=== PATIENT | male | born 1995 | race Caucasian/White ===

== ENCOUNTER 2018-09-19 21:16 | Inpatient (IN) | payer BC ==
[2018-09-19] MEDS ORDERED: ONDANSETRON 4 MG/2 ML VIAL IVP STA (22:24)
[2018-09-19] MEDS ORDERED: FAMOTIDINE 20 MG/2 ML VIAL IV STA (22:25)
[2018-09-19] MEDS ORDERED: SODIUM CHLORIDE 0.9% 1,000 ML IV ONE (22:25)
[2018-09-19] MEDS ORDERED: hydrOXYzine HCL 25 MG TAB PO STA (22:25)
[2018-09-19 22:26] LABS: Basophils % (A) 1 %; Eosinophils # (A) 0.1 k/uL (0-0.7); Eosinophils % (A) 3 %; HCT 43.1 % (39.0-53.0); HGB 13.8 gm/dL (13.0-17.5); Lymphocytes # (A) 0.7 k/uL (1.0-4.8); Lymphocytes % (A) 21 %; MCH 31.8 pg (25.0-35.0); MCHC 32.1 g/dL (31.0-37.0); MCV 98.9 fL (80.0-100.0); Mean Platelet Volume 8.1; Monocytes # (A) 0.2 k/uL (0-1.0); Monocytes % (A) 6 %; Neutrophils # (A) 2.2 k/uL (1.3-7.7); Neutrophils % (A) 66 %; RBC 4.36 m/uL (4.30-5.90); RDW 13.1 % (11.5-15.5); WBC 3.3 k/uL (3.8-10.6)
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
[2018-09-19 22:29] LABS: ALT 258 U/L (21-72); AST 734 U/L (17-59); African American GFR (CKD) >90 (>60 ml/min/1.73 sqM); Albumin 4.7 g/dL (3.5-5.0); Alkaline Phosphatase 108 U/L (38-126); Amylase 67 U/L (30-110); Anion Gap 12 mmol/L; Blood Urea Nitrogen 13 mg/dL (9-20); Calcium 9.5 mg/dL (8.4-10.2); Carbon Dioxide 27 mmol/L (22-30); Chloride 100 mmol/L (98-107); Glucose 83 mg/dL (74-99); Lipase 107 U/L (23-300); Potassium 3.7 mmol/L (3.5-5.1); Sodium 139 mmol/L (137-145); Total Bilirubin 1.3 mg/dL (0.2-1.3); Total Protein 7.2 g/dL (6.3-8.2)
[2018-09-19 22:33] LABS: Alcohol 93 mg/dL
[2018-09-19 22:54] LABS: Platelet Count 90 k/uL (150-450)
[2018-09-19 22:55] LABS: Large Platelets Present
[2018-09-20] MEDS ORDERED: LORazepam 1 MG TAB PO STA (00:16)
[2018-09-20] MEDS ORDERED: chlordiazePOXIDE 25 MG CAP PO ONE (00:30)
[2018-09-20] MEDS ORDERED: ONDANSETRON 4 MG/2 ML VIAL IVP STA (00:40)
[2018-09-20] MEDS ORDERED: chlordiazePOXIDE 25 MG CAP PO STA (00:40)
[2018-09-20] MEDS ORDERED: THIAMINE 100 MG/ML 2 ML VIAL IM STA (02:01)
[2018-09-20] MEDS ORDERED: NALOXONE 0.4 MG/ML 1 ML VIAL IV PRN (02:02)
[2018-09-20] MEDS ORDERED: IBUPROFEN 600 MG TAB PO PRN (02:05)
--- NOTE | 2018-09-20 02:33 | US ---
EXAM: US Abdomen Complete CLINICAL HISTORY: Pain TECHNIQUE: Real-time ultrasound of the abdomen (complete) with image documentation. COMPARISON: No relevant prior studies available. FINDINGS: Liver: Enlarged liver at 20-21 cm with increased echogenicity. No intrahepatic bile duct dilation. Gallbladder: Distended gallbladder. No gallstones. No wall thickening or pericholecystic fluid. Common bile duct: Unremarkable. Pancreas: Portion of pancreas obscured by bowel gas. Kidneys: Unremarkable. No stones. No solid mass. No hydronephrosis. Spleen: Unremarkable. No splenomegaly. Aorta: Portion of the distal abdominal aorta obscured by bowel gas. Remainder unremarkable. Inferior vena cava: Unremarkable. IMPRESSION: Fatty, enlarged liver at 20-21 cm. No cholelithiasis. Remainder unremarkable.
[2018-09-20 02:52] LABS: Appearance,Urine Clear (Clear); Bilirubin,Urine 1+ (Negative); Blood,Urine Negative (Negative); Color,Urine Yellow; Glucose,Urine (UA) Negative (Negative); Hyaline Casts,Urine 2 /lpf (0-2); Ketones,Urine 1+ (Negative); Leukocyte Esterase,Urine Negative (Negative); Mucus,Urine Many /hpf; Nitrite,Urine Negative (Negative); PH, Urine 6.5 (5.0-8.0); Protein,Urine 2+ (Negative); RBC,Urine 2 /hpf (0-5); Specific Gravity,Urine 1.019 (1.001-1.035); Squamous Epithelial Cell,Urine <1 /hpf (0-4); WBC,Urine 2 /hpf (0-5)
[2018-09-20] MEDS ORDERED: ONDANSETRON 4 MG/2 ML VIAL IVP PRN (04:14)
[2018-09-20] MEDS: LORazepam 2 MG/ML INJ IV PRN ×4 (04:18→17:20)
[2018-09-20] MEDS: SODIUM CHLORIDE 0.9% 1,000 ML IV SCH ×2 (04:21→17:21)
[2018-09-20] MEDS ORDERED: diphenhydrAMINE 25 MG CAP PO PRN (06:00)
[2018-09-20] MEDS: FAMOTIDINE 20 MG TAB PO SCH ×2 (08:21→20:59)
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
[2018-09-20] MEDS: THIAMINE 100 MG TAB PO SCH ×2 (17:21→17:22)
[2018-09-20] MEDS: traZODone HCL 50 MG TAB PO SCH (20:59)
[2018-09-21] MEDS: LORazepam 2 MG/ML INJ IV PRN ×16 (01:19→16:09)
[2018-09-21] MEDS: SODIUM CHLORIDE 0.9% 1,000 ML IV SCH (05:19)
[2018-09-21] MEDS: THIAMINE 100 MG TAB PO SCH ×2 (07:35→21:40)
[2018-09-21] MEDS: FAMOTIDINE 20 MG TAB PO SCH ×2 (07:35→21:40)
[2018-09-21] MEDS: NICOTINE 21MG/24HR PATCH TRANSDERM SCH (07:38)
[2018-09-21] MEDS: chlordiazePOXIDE 25 MG CAP PO SCH ×3 (09:28→22:31)
[2018-09-21 09:34] LABS: Basophils % (A) 1 %; Eosinophils # (A) 0.1 k/uL (0-0.7); Eosinophils % (A) 4 %; HGB 14.9 gm/dL (13.0-17.5); Lymphocytes # (A) 0.7 k/uL (1.0-4.8); Lymphocytes % (A) 18 %; MCH 32.1 pg (25.0-35.0); MCV 97.3 fL (80.0-100.0); Mean Platelet Volume 7.9; Monocytes # (A) 0.3 k/uL (0-1.0); Monocytes % (A) 8 %; Neutrophils # (A) 2.4 k/uL (1.3-7.7); Neutrophils % (A) 67 %; RBC 4.63 m/uL (4.30-5.90); RDW 12.9 % (11.5-15.5); WBC 3.6 k/uL (3.8-10.6)
[2018-09-21 09:41] LABS: Platelet Count 94 k/uL (150-450)
[2018-09-21 09:55] LABS: ALT 193 U/L (21-72); AST 381 U/L (17-59); African American GFR (CKD) >90 (>60 ml/min/1.73 sqM); Albumin 4.9 g/dL (3.5-5.0); Alkaline Phosphatase 96 U/L (38-126); Anion Gap 19 mmol/L; Bilirubin, Delta 0.4 mg/dL (0.0-0.2); Bilirubin,Unconjugated 0.8 mg/dL (0.0-1.1); Blood Urea Nitrogen 8 mg/dL (9-20); Calcium 9.8 mg/dL (8.4-10.2); Carbon Dioxide 20 mmol/L (22-30); Chloride 98 mmol/L (98-107); Glucose 73 mg/dL (74-99); Potassium 3.7 mmol/L (3.5-5.1); Sodium 137 mmol/L (137-145); Total Bilirubin 1.2 mg/dL (0.2-1.3); Total Protein 7.5 g/dL (6.3-8.2)
[2018-09-21 13:04] LABS: Glucose,Whole Blood 90 mg/dL (75-99)
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
[2018-09-21] MEDS ORDERED: LORazepam 2 MG/ML INJ IV PRN (15:51)
--- NOTE | 2018-09-21 15:53 | P.PN ---
Subjective Progress Note Date: 09/21/18 Principal diagnosis: EtOH intoxication/withdrawal Chronic alcohol abuse 09/21/2018 Patient is seen and evaluated in room at bedside; patient has his family and sitter at bedside; has been very agitated and delusional; trying to climb out of bed and pulling and diabetes Vital signs are significant for heart rate of 112, respiration 21 and blood pressure of 143/112 Labs review show a white blood count of 3.6 and a platelet count of 94; sodium 137, potassium 3.7 and CO2 levels of 20 with a 9 gap of 19; slight improvement with AST/ALT from [id number]/258-381/193 this morning Patient has been evaluated by psych service and inpatient treatment is not recommended Patient was started on CIWA protocol and later Librium plus added at 25 mg 4 times a day; patient remained extremely agitated and hallucinations; discussed with casting machine adjuster service and is being transferred to ICU for possible sedation; continue with thiamine 100 mg twice a day Objective - Vital Signs Vital signs: Vital Signs Temp 98.2 F 09/21/18 05:00 Pulse 70 09/21/18 05:00 Resp 18 09/21/18 05:00 BP 131/86 09/21/18 05:00 Pulse Ox 100 09/21/18 05:00 Intake & Output 09/20/18 09/21/18 09/21/18 18:59 06:59 18:59 Intake Total 540 750 Balance 540 750 Intake: Oral 540 750 Other: # Voids 2 2 # Bowel Movements 0 - Exam - Constitutional General appearance: Present: average body habitus, cooperative, no acute distress - EENT Eyes: Present: anicteric sclerae, EOMI, PERRLA, normal appearance ENT: Present: hearing grossly normal, normal oropharynx Ears: bilateral: normal - Neck Neck: Present: normal ROM. Absent: lymphadenopathy, rigidity, thyromegaly Carotids: negative: bruit present Thyroid: bilateral: normal size, negative: enlarged, nodule - Respiratory Respiratory: bilateral: CTA, negative: rales, rhonchi, wheezing - Cardiovascular Rhythm: regular Heart sounds: normal: S1, S2 Abnormal Heart Sounds: Absent: systolic murmur, diastolic murmur - Gastrointestinal General gastrointestinal: Present: normal bowel sounds, soft. Absent: distended, organomegaly, tenderness - Genitourinary Genitourinary Comment(s): deferred - Integumentary Integumentary: Present: normal turgor. Absent: jaundiced, rash, ulcer - Neurologic Neurologic: Present: CNII-XII intact. Absent: focal deficits - Musculoskeletal Musculoskeletal: Present: gait normal, strength equal bilaterally - Psychiatric Psychiatric: Present: A&O x's 3, appropriate affect, intact judgment & insight - Labs CBC & Chem 7: 09/21/18 08:03 09/21/18 08:03 Labs: Abnormal Lab Results - Last 24 Hours (Table) 09/21/18 09/21/18 Range/Units 08:03 08:03 WBC 3.6 L (3.8-10.6) k/uL Plt Count 94 L (150-450) k/uL Lymphocytes # 0.7 L (1.0-4.8) k/uL Carbon Dioxide 20 L (22-30) mmol/L BUN 8 L (9-20) mg/dL Creatinine 0.61 L (0.66-1.25) mg/dL Glucose 73 L (74-99) mg/dL Delta Bilirubin 0.4 H (0.0-0.2) mg/dL AST 381 H (17-59) U/L ALT 193 H (21-72) U/L Assessment and Plan Assessment: 1. EtOH intoxication/withdrawal - Patient is admitted to general medical floor for IV fluid hydration with norm al saline at rate of 75 mL an hour; we will continue with thiamine and folic acid - Patient has [facility] protocol in place for alcohol withdrawal - Consult adoption social worker for discharge planning 2. Intractable nausea and vomiting; Zofran 4 mg every 6 hours when necessary 3. Elevated liver enzymes possibly secondary to alcohol abuse; hepatic ultrasound shows fatty enlarged liver at 2021 centimeter - We will continue to monitor liver enzymes closely; further recommendations to follow 4. Neutropenia/thrombocytopenia; possibly alcoholic liver disease; counseling done on need for cessation of alcohol; monitor CBC closely 5. Sleep disorder; restart patient on home dose of trazodone 6. DVT prophylaxis; SCDs/early ambulation CODE STATUS; full code Time with Patient: Greater than 30
[2018-09-21] MEDS ORDERED: HALOPERIDOL LACTATE 5 MG/ML 1 ML VIAL ONE (15:57)
[2018-09-21] MEDS ORDERED: HALOPERIDOL LACTATE 5 MG/ML 1 ML VIAL IVP PRN ×2 (16:12→16:13)
[2018-09-21] MEDS: traZODone HCL 50 MG TAB PO SCH (21:52)
[2018-09-22] MEDS: chlordiazePOXIDE 25 MG CAP PO SCH ×5 (00:25→23:10)
[2018-09-22] MEDS: LORazepam 2 MG/ML INJ IV PRN (00:52)
[2018-09-22] MEDS: SODIUM CHLORIDE 0.9% 1,000 ML IV SCH ×3 (06:17→23:26)
[2018-09-22 06:58] LABS: ALT 153 U/L (21-72); AST 291 U/L (17-59); African American GFR (CKD) >90 (>60 ml/min/1.73 sqM); Albumin 4.4 g/dL (3.5-5.0); Alkaline Phosphatase 86 U/L (38-126); Anion Gap 15 mmol/L; Bilirubin, Delta 0.3 mg/dL (0.0-0.2); Bilirubin,Unconjugated 0.6 mg/dL (0.0-1.1); Blood Urea Nitrogen 9 mg/dL (9-20); Calcium 9.4 mg/dL (8.4-10.2); Carbon Dioxide 21 mmol/L (22-30); Chloride 103 mmol/L (98-107); Glucose 66 mg/dL (74-99); Potassium 3.9 mmol/L (3.5-5.1); Sodium 139 mmol/L (137-145); Total Bilirubin 0.9 mg/dL (0.2-1.3); Total Protein 6.8 g/dL (6.3-8.2)
[2018-09-22 07:02] LABS: Basophils % (A) 1 %; Eosinophils # (A) 0.1 k/uL (0-0.7); Eosinophils % (A) 4 %; HGB 14.6 gm/dL (13.0-17.5); Lymphocytes # (A) 0.6 k/uL (1.0-4.8); Lymphocytes % (A) 20 %; MCH 32.6 pg (25.0-35.0); MCHC 32.4 g/dL (31.0-37.0); MCV 100.6 fL (80.0-100.0); Macrocytosis Slight; Mean Platelet Volume 8.7; Monocytes # (A) 0.2 k/uL (0-1.0); Monocytes % (A) 8 %; Neutrophils # (A) 1.8 k/uL (1.3-7.7); Neutrophils % (A) 62 %; RBC 4.47 m/uL (4.30-5.90); RDW 14.5 % (11.5-15.5); WBC 2.9 k/uL (3.8-10.6)
[2018-09-22 07:19] LABS: Anisocytosis (M) Present; Platelet Count 94 k/uL (150-450)
[2018-09-22] MEDS: NICOTINE 21MG/24HR PATCH TRANSDERM SCH (09:12)
[2018-09-22] MEDS: THIAMINE 100 MG TAB PO SCH ×3 (09:12→20:54)
[2018-09-22] MEDS: FAMOTIDINE 20 MG TAB PO SCH ×3 (09:12→20:55)
[2018-09-22 09:18] LABS: Glucose,Whole Blood 74 mg/dL (75-99)
[2018-09-22 11:05] LABS: Urine Alcohol Negative (Negative); Urine Barbiturate Negative (Negative); Urine Cocaine Negative (Negative); Urine Methadone Negative (Negative); Urine Opiates Negative (Negative); Urine Phencyclidine Negative (Negative)
[2018-09-22] MEDS: MAGNESIUM SULFATE-D5W PMX 1 GM in DEXTROSE/WATER 1 100ML.BAG IVPB SCH ×2 (14:36→19:29)
--- NOTE | 2018-09-22 16:52 | P.PN ---
Subjective Progress Note Date: 09/22/18 This is a 22-year-old white male patient with history of chronic alcoholism, he nenita alcohol abuse, patient drinks a fifth of vodka on a daily basis since the age of 13, smoker, marijuana use, who presented to the hospital from [facility] where he was for detox. Patient came in with complaints of vomiting, abdominal pain, hence was transferred to the emergency department for evaluation. He checked into [facility] on September 19, and he stated he had not been given anything for EtOH withdrawal. Has prior history of acute alcohol withdrawal syndrome, with seizures, had prior rehab at [facility] back in December, however as soon as he left the rehab he was started drinking again. Patient was started on combination of Ativan and Librium. Admission lab work revealed elevated liver enzymes ultrasound of the abdomen was done showing fatty liver at 20-21 cm, no cholelithiasis. Admission lab work showed white blood cell count of 3.3, hemoglobin of 13.8, platelet count was 90, electrolytes were within normal limits on admission, BUN was 13 creatinine was 0.63. AST was 734, ALT was 258, amylase was 67, and lipase was 107, urinalysis showed 2+ protein, 1+ ketones, 1+ bilirubin, no evidence of infection, serum alcohol on admission was 93. Today we received a call from the attending physician with concerns about patient's tachycardia, hypertension, tremors, sweating, and patient will be transferred to the intensive care unit for monitoring for acute alcohol withdrawal. During our evaluation patient is sitting up in bed, he is dressed in his street clothes, he is pleasant, but he is visibly tremulous, and his palms are moist. His speech is fast, but appropriate, no signs of delirium at this time. His girlfriend and his father are at the bedside, patient was able to provide most of the history. He is pleasant and cooperative. Denies any abdominal pain, no nausea or vomiting. No seizure activity. Room air pulse ox is 100%, blood pressure is 148/105, temperature is 98.2, patient is tachycardic with a heart rate of 101 BPM. No complaints of chest pain or difficulty breathing. Today's evaluation this patient is is being seen in follow-up on 09/22/2018. The patient is a bit sleepy and still confused. No significant agitation. Based on my evaluation, the patient received a total of 26 mg of Ativan yesterday, 8 mg of Haldol and she was given another 4 mg of Ativan overnight. He is arousable. He is moving all 4 extremities without any limitation. He is not complaining of any headache. No cough. No sputum production. No chest pain. No palpitation pedal cardiac arrhythmias. The patient's white cell count is at 2.9. Platelet count is at 94,000. Rest of the blood work and electrodes are all within normal limits. Objective - Vital Signs Vital signs: Vital Signs Temp 97.8 F 09/22/18 09:00 Pulse 63 09/22/18 14:00 Resp 16 09/22/18 14:00 BP 124/95 09/22/18 14:00 Pulse Ox 96 09/22/18 14:00 Intake & Output 09/21/18 09/22/18 09/22/18 18:59 06:59 18:59 Intake Total 375 975 600 Output Total 900 300 Balance -525 675 600 Weight 67.3 kg Intake: Intake, IV Titration 375 975 600 Amount Sodium Chloride 0.9% 1, 375 975 600 000 ml @ 75 mls/hr IV . [id number] [facility] Rx#:[id number] Output: Urine 900 300 Other: Voiding Method Bedpan Bedpan # Voids 2 - Exam GENERAL EXAM: Alert, pleasant, 22-year-old thin white male, patient remains a bit sleepy and lethargic as the patient has a significant amount of sedative med ication yesterday and overnight. HEAD: Normocephalic/atraumatic. EYES: Normal reaction of pupils, equal size. Conjunctiva pink, sclera white. NOSE: Clear with pink turbinates. THROAT: No erythema or exudates. NECK: No masses, no JVD, no thyroid enlargement, no adenopathy. CHEST: No chest wall deformity. Symmetrical expansion. LUNGS: Equal air entry with no crackles, wheeze, rhonchi or dullness. CVS: Regular rate and rhythm, normal S1 and S2, no gallops, no murmurs, no rubs. he is tachycardic with a rate in the low 100s ABDOMEN: Soft, nontender. No hepatosplenomegaly, normal bowel sounds, no guarding or rigidity. EXTREMITIES: No clubbing, no edema, no cyanosis, 2+ pulses and upper and lower extremities. MUSCULOSKELETAL: Muscle strength and tone normal. SPINE: No scoliosis or deformity SKIN: No rashes CENTRAL NERVOUS SYSTEM: Alert and oriented 1-2. No focal deficits, tone is normal in all 4 extremities. PSYCHIATRIC: Alert and oriented -3. Appropriate affect. Intact judgment and insight. - Labs CBC & Chem 7: 09/22/18 05:09 09/22/18 05:09 Labs: Abnormal Lab Results - Last 24 Hours (Table) 09/21/18 09/22/18 09/22/18 Range/Units 12:30 05:09 05:09 WBC 2.9 L (3.8-10.6) k/uL MCV 100.6 H (80.0-100.0) fL Plt Count 94 L (150-450) k/uL Lymphocytes # 0.6 L (1.0-4.8) k/uL Carbon Dioxide 21 L (22-30) mmol/L Creatinine 0.64 L (0.66-1.25) mg/dL Glucose 66 L (74-99) mg/dL POC Glucose (mg/dL) (75-99) mg/dL Delta Bilirubin 0.3 H (0.0-0.2) mg/dL AST 291 H (17-59) U/L ALT 153 H (21-72) U/L U Benzodiazepines Scrn Positive H (Negative) ng/mL U Cannabinoids Screen Positive H (Negative) ng/mL 09/22/18 Range/Units 09:16 WBC (3.8-10.6) k/uL MCV (80.0-100.0) fL Plt Count (150-450) k/uL Lymphocytes # (1.0-4.8) k/uL Carbon Dioxide (22-30) mmol/L Creatinine (0.66-1.25) mg/dL Glucose (74-99) mg/dL POC Glucose (mg/dL) 74 L (75-99) mg/dL Delta Bilirubin (0.0-0.2) mg/dL AST (17-59) U/L ALT (21-72) U/L U Benzodiazepines Scrn (Negative) ng/mL U Cannabinoids Screen (Negative) ng/mL Assessment and Plan Plan: #1. Acute alcohol withdrawal/delirium tremens in a patient was chronic history of alcoholism. The patient's condition is more stable and the patient was covered with a combination of Ativan and Haldol. Hemodynamically stable at this point in time. #2. Elevated liver enzymes related to chronic alcoholism, abdominal ultrasound revealed fatty liver #3. Chronic alcoholism, with previous history of rehab placement at [facility], patient immediately relapsed after discharge from rehab. Drinks a fifth of vodka a day, last drink was before entering [facility] rehab on 09/19/2018 #4. Acute alcohol withdrawal, without delirium #5. Chronic smoker #6. Marijuana use #7. Leukopenia and thrombocytopenia related to chronic alcohol abuse Plan Monitor this patient's neurologic function. He is still in the interim tremors. Is receiving a combination of Ativan and Haldol per protocol. He was also started on Librium 25 mg 4 times a day. Nicotine patch. Trazodone 100 mg bedtime. Thiamine and folate. IV hydration. Advance diet. We'll continue to follow.
--- NOTE | 2018-09-22 17:28 | P.PN ---
Subjective patient admitted for alcohol withdrawalshe was transferred to ICU as he was requiring a lot of Ativan. He received had 2 doses of Ativan and about 8 mg of Haldol. On 09/22/2018 Patient is sleepy but arousable He was not complaining of any chest pain racing heart, no cough no shortness breath, no abdominal pain, nausea and vomiting, or diarrhea constipation, no tingling numbness on his extremities. Objective - Vital Signs Vital signs: Vital Signs Temp 97.8 F 09/22/18 09:00 Pulse 63 09/22/18 14:00 Resp 16 09/22/18 14:00 BP 124/95 09/22/18 14:00 Pulse Ox 96 09/22/18 14:00 Intake & Output 09/21/18 09/22/18 09/22/18 18:59 06:59 18:59 Intake Total 375 975 600 Output Total 900 300 Balance -525 675 600 Weight 67.3 kg Intake: Intake, IV Titration 375 975 600 Amount Sodium Chloride 0.9% 1, 375 975 600 000 ml @ 75 mls/hr IV . [id number] [facility] Rx#:[id number] Output: Urine 900 300 Other: Voiding Method Bedpan Bedpan # Voids 2 - Exam On exam, alert and oriented x3. HEENT: Conjunctivae normal. eyes normal. NECK: No JVD. No thyroid enlargement. No LNs CARDIOVASCULAR: S1-S2 positive RESPIRATION: Breath sounds diminished in the bases. No rhonchi or crackles. No bronchial breathing. ABDOMEN: Soft, nontender . No guarding. no masses palpable. No ascites, No hepatosplenomegaly.Bowel sounds heard. LEGS: No edema. no swelling NERVOUS SYSTEM: Cranial N 2-12 grossly normal. Moves all 4 limbs. No focal deficits. No sensory deficit. No signs of cerebellar dysfucntion. Skin: no ulcer no rash - Labs CBC & Chem 7: 09/22/18 05:09 09/22/18 05:09 Labs: Abnormal Lab Results - Last 24 Hours (Table) 09/21/18 09/22/18 09/22/18 Range/Units 12:30 05:09 05:09 WBC 2.9 L (3.8-10.6) k/uL MCV 100.6 H (80.0-100.0) fL Plt Count 94 L (150-450) k/uL Lymphocytes # 0.6 L (1.0-4.8) k/uL Carbon Dioxide 21 L (22-30) mmol/L Creatinine 0.64 L (0.66-1.25) mg/dL Glucose 66 L (74-99) mg/dL POC Glucose (mg/dL) (75-99) mg/dL Delta Bilirubin 0.3 H (0.0-0.2) mg/dL AST 291 H (17-59) U/L ALT 153 H (21-72) U/L U Benzodiazepines Scrn Positive H (Negative) ng/mL U Cannabinoids Screen Positive H (Negative) ng/mL 09/22/18 Range/Units 09:16 WBC (3.8-10.6) k/uL MCV (80.0-100.0) fL Plt Count (150-450) k/uL Lymphocytes # (1.0-4.8) k/uL Carbon Dioxide (22-30) mmol/L Creatinine (0.66-1.25) mg/dL Glucose (74-99) mg/dL POC Glucose (mg/dL) 74 L (75-99) mg/dL Delta Bilirubin (0.0-0.2) mg/dL AST (17-59) U/L ALT (21-72) U/L U Benzodiazepines Scrn (Negative) ng/mL U Cannabinoids Screen (Negative) ng/mL Assessment and Plan Assessment: - WITHDRAWAL - History of alcoholism - Transaminitis related to alcoholism - history of marijuana use - leukopenia - thrombocytopenia Plan - Continue to monitor in ICU - Continue serial protocol - Continuecurrent medical care - Continue IV fluids - we'll follow up with the patient Time with Patient: Greater than 30
[2018-09-22] MEDS: traZODone HCL 50 MG TAB PO SCH (21:01)
[2018-09-23] MEDS: LORazepam 2 MG/ML INJ IV PRN ×3 (00:47→23:01)
[2018-09-23 05:52] LABS: HCT 43.9 % (39.0-53.0); HGB 14.2 gm/dL (13.0-17.5); MCHC 32.3 g/dL (31.0-37.0); Platelet Count 133 k/uL (150-450); RBC 4.43 m/uL (4.30-5.90); RDW 14.6 % (11.5-15.5); WBC 3.4 k/uL (3.8-10.6)
[2018-09-23 06:01] LABS: ALT 140 U/L (21-72); AST 247 U/L (17-59); African American GFR (CKD) >90 (>60 ml/min/1.73 sqM); Albumin 3.9 g/dL (3.5-5.0); Alkaline Phosphatase 120 U/L (38-126); Anion Gap 11 mmol/L; Bilirubin, Delta 0.3 mg/dL (0.0-0.2); Bilirubin,Unconjugated 0.4 mg/dL (0.0-1.1); Blood Urea Nitrogen 7 mg/dL (9-20); Calcium 9.2 mg/dL (8.4-10.2); Carbon Dioxide 23 mmol/L (22-30); Chloride 105 mmol/L (98-107); Glucose 98 mg/dL (74-99); Magnesium 1.7 mg/dL (1.6-2.3); Potassium 3.7 mmol/L (3.5-5.1); Sodium 139 mmol/L (137-145); Total Bilirubin 0.7 mg/dL (0.2-1.3); Total Protein 6.4 g/dL (6.3-8.2)
[2018-09-23] MEDS: NICOTINE 21MG/24HR PATCH TRANSDERM SCH ×2 (08:16→08:28)
[2018-09-23] MEDS: THIAMINE 100 MG TAB PO SCH ×2 (08:16→18:16)
[2018-09-23] MEDS: FAMOTIDINE 20 MG TAB PO SCH ×2 (08:16→21:12)
[2018-09-23] MEDS: chlordiazePOXIDE 25 MG CAP PO SCH ×4 (08:16→21:12)
[2018-09-23 08:32] LABS: Lymphocytes # (M) 0.75 k/uL (1.0-4.8); Monocytes # (M) 0.44 k/uL (0-1.0); Neutrophils # (M) 2.11 k/uL (1.3-7.7); Neutrophils % (M) 62 %; Nucleated Red Blood Cells 0 /100 WBC (0-0); Total Cells Counted 100
[2018-09-23] MEDS: SODIUM CHLORIDE 0.9% 1,000 ML IV SCH ×2 (10:25→18:40)
--- NOTE | 2018-09-23 15:29 | P.PN ---
Subjective patient admitted for alcohol withdrawalshe was transferred to ICU as he was requiring a lot of Ativan. He received had 2 doses of Ativan and about 8 mg of Haldol. On 09/22/2018 Patient is sleepy but arousable He was not complaining of any chest pain racing heart, no cough no shortness breath, no abdominal pain, nausea and vomiting, or diarrhea constipation, no tingling numbness on his extremities. 09/23/2018 Doing much better today. Patient will probably be transferred out of the ICU today No chest pain racing heart, no cough no shortness of breath, no tingling numbness on his extremities Objective - Vital Signs Vital signs: Vital Signs Temp 98.0 F 09/23/18 14:46 Pulse 96 09/23/18 14:46 Resp 15 09/23/18 14:46 BP 142/102 09/23/18 14:46 Pulse Ox 100 09/23/18 14:46 Intake & Output 09/22/18 09/23/18 09/23/18 18:59 06:59 18:59 Intake Total 1000 75 475 Output Total 450 0 Balance 550 75 475 Intake: IV 75 75 Sodium Chloride 0.9% 1, 75 75 000 ml @ 75 mls/hr IV . [id number] JACQUE Rx#:[id number] Intake, IV Titration 900 Amount Sodium Chloride 0.9% 1, 900 000 ml @ 75 mls/hr IV . [id number] JACQUE Rx#:[id number] Oral 100 400 Output: Urine 450 0 Other: Voiding Method Bedpan Urinal # Voids 2 - Exam On exam, alert and oriented x3. HEENT: Conjunctivae normal. eyes normal. NECK: No JVD. No thyroid enlargement. No LNs CARDIOVASCULAR: S1-S2 positive RESPIRATION: Breath sounds diminished in the bases. No rhonchi or crackles. No bronchial breathing. ABDOMEN: Soft, nontender . No guarding. no masses palpable. No ascites, No hepatosplenomegaly.Bowel sounds heard. LEGS: No edema. no swelling NERVOUS SYSTEM: Cranial N 2-12 grossly normal. Moves all 4 limbs. No focal deficits. No sensory deficit. No signs of cerebellar dysfucntion. Skin: no ulcer no rash - Labs CBC & Chem 7: 09/23/18 04:46 09/23/18 04:46 Labs: Abnormal Lab Results - Last 24 Hours (Table) 09/23/18 09/23/18 Range/Units 04:46 04:46 WBC 3.4 L (3.8-10.6) k/uL Plt Count 133 L (150-450) k/uL Lymphocytes # (Manual) 0.75 L (1.0-4.8) k/uL BUN 7 L (9-20) mg/dL Delta Bilirubin 0.3 H (0.0-0.2) mg/dL AST 247 H (17-59) U/L ALT 140 H (21-72) U/L Assessment and Plan Assessment: - WITHDRAWAL - History of alcoholism - Transaminitis related to alcoholism - history of marijuana use - leukopenia - thrombocytopenia Plan 09/22/2018 - Continue to monitor in ICU - Continue serial protocol - Continuecurrent medical care - Continue IV fluids - we'll follow up with the patient 09/23/2018 - Patient will probably be transferred out of the ICU today -Patient will be monitored today and if he is doing better probably will be discharged tomorrow -Patient to go to [facility] for alcohol rehab
--- NOTE | 2018-09-23 17:19 | P.PN ---
Subjective Progress Note Date: 09/23/18 Principal diagnosis: Acute alcohol withdrawal This is a 22-year-old white male patient with history of chronic alcoholism, heavy alcohol abuse, patient drinks a fifth of vodka on a daily basis since the age of 13, smoker, marijuana use, who presented to the hospital from [facility] where he was for detox. Patient came in with complaints of vomiting, abdominal pain, hence was transferred to the emergency department for evaluation. He checked into [facility] on September 19, and he stated he had not been given anything for EtOH withdrawal. Has prior history of acute alcohol withdrawal syndrome, with seizures, had prior rehab at [facility] back in December, however as soon as he left the rehab he was started drinking again. Patient was started on combination of Ativan and Librium. Admission lab work revealed elevated liver enzymes ultrasound of the abdomen was done showing fatty liver at 20-21 cm, no cholelithiasis. Admission lab work showed white blood cell count of 3.3, hemoglobin of 13.8, platelet count was 90, electrolytes were within normal limits on admission, BUN was 13 creatinine was 0.63. AST was 734, ALT was 258, amylase was 67, and lipase was 107, urinalysis showed 2+ protein, 1+ ketones, 1+ bilirubin, no evidence of infection, serum alcohol on admission was 93. Today we received a call from the attending physician with concerns about patient's tachycardia, hypertension, tremors, sweating, and patient will be transferred to the intensive care unit for monitoring for acute alcohol withdrawal. During our evaluation patient is sitting up in bed, he is dressed in his street clothes, he is pleasant, but he is visibly tremulous, and his palms are moist. His speech is fast, but appropriate, no signs of delirium at this time. His girlfriend and his father are at the bedside, patient was able to provide most of the history. He is pleasant and cooperative. Denies any abdominal pain, no nausea or vomiting. No seizure activity. Room air pulse ox is 100%, blood pressure is 148/105, temperature is 98.2, patient is tachycardic with a heart rate of 101 BPM. No complaints of chest pain or difficulty breathing. Today's evaluation this patient is is being seen in follow-up on 09/22/2018. The patient is a bit sleepy and still confused. No significant agitation. Based on my evaluation, the patient received a total of 26 mg of Ativan yesterday, 8 mg of Haldol and she was given another 4 mg of Ativan overnight. He is arousable. He is moving all 4 extremities without any limitation. He is not complaining of any headache. No cough. No sputum production. No chest pain. No palpitation pedal cardiac arrhythmias. The patient's white cell count is at 2.9. Platelet count is at 94,000. Rest of the blood work and electrodes are all within normal limits. On 09/23/2018 patient seen in follow-up in the intensive care unit, he is sitting up in the recliner, in no acute distress, no confusion, no signs of delirium, patient is responding appropriately, no tremors, no diaphoresis, room air pulse ox is 100%, no tachycardia, sinus rhythm on the monitor with a controlled rate, afebrile, hemodynamically stable. Respirations are even and nonlabored. No acute events overnight. Doing much better, tolerating a regular diet. Patient is stable to transfer out of the intensive care unit today. Objective - Vital Signs Vital signs: Vital Signs Temp 98.0 F 09/23/18 14:46 Pulse 96 09/23/18 14:46 Resp 15 09/23/18 14:46 BP 142/102 09/23/18 14:46 Pulse Ox 100 09/23/18 14:46 Intake & Output 09/22/18 09/23/18 09/23/18 18:59 06:59 18:59 Intake Total 1000 75 475 Output Total 450 0 Balance 550 75 475 Intake: IV 75 75 Sodium Chloride 0.9% 1, 75 75 000 ml @ 75 mls/hr IV . [id number] JACQUE Rx#:[id number] Intake, IV Titration 900 Amount Sodium Chloride 0.9% 1, 900 000 ml @ 75 mls/hr IV . [id number] JACQUE Rx#:[id number] Oral 100 400 Output: Urine 450 0 Other: Voiding Method Bedpan Urinal # Voids 2 - Exam GENERAL EXAM: Alert, pleasant, 22-year-old white male, on room air, answering appropriately, comfortable in no apparent distress. HEAD: Normocephalic/atraumatic. EYES: Normal reaction of pupils, equal size. Conjunctiva pink, sclera white. NOSE: Clear with pink turbinates. THROAT: No erythema or exudates. NECK: No masses, no JVD, no thyroid enlargement, no adenopathy. CHEST: No chest wall deformity. Symmetrical expansion. LUNGS: Equal air entry with no crackles, wheeze, rhonchi or dullness. CVS: Regular rate and rhythm, normal S1 and S2, no gallops, no murmurs, no rubs ABDOMEN: Soft, nontender. No hepatosplenomegaly, normal bowel sounds, no guarding or rigidity. EXTREMITIES: No clubbing, no edema, no cyanosis, 2+ pulses and upper and lower extremities. MUSCULOSKELETAL: Muscle strength and tone normal. SPINE: No scoliosis or deformity SKIN: No rashes CENTRAL NERVOUS SYSTEM: Alert and oriented -3. No focal deficits, tone is normal in all 4 extremities. PSYCHIATRIC: Alert and oriented -3. Appropriate affect. Intact judgment and insight. - Labs CBC & Chem 7: 09/23/18 04:46 09/23/18 04:46 Labs: Abnormal Lab Results - Last 24 Hours (Table) 09/23/18 09/23/18 Range/Units 04:46 04:46 WBC 3.4 L (3.8-10.6) k/uL Plt Count 133 L (150-450) k/uL Lymphocytes # (Manual) 0.75 L (1.0-4.8) k/uL BUN 7 L (9-20) mg/dL Delta Bilirubin 0.3 H (0.0-0.2) mg/dL AST 247 H (17-59) U/L ALT 140 H (21-72) U/L Assessment and Plan Plan: Assessment: #1. Acute alcohol withdrawal/delirium tremens in a patient was chronic history of alcoholism. The patient's condition is more stable and the patient was cover ed with a combination of Ativan and Haldol. Hemodynamically stable at this point in time. #2. Elevated liver enzymes related to chronic alcoholism, abdominal ultrasound revealed fatty liver #3. Chronic alcoholism, with previous history of rehab placement at [facility], patient immediately relapsed after discharge from rehab. Drinks a fifth of vodka a day, last drink was before entering [facility] rehab on 09/19/2018 #4. Chronic smoker #5. Marijuana use #6. Leukopenia and thrombocytopenia related to chronic alcohol abuse, improving Plan: Continue monitoring CIWA scale, patient is awake and alert, no evidence of delirium, he is cooperative, no tremors, no complaints of headaches, no difficulty breathing, no tachycardia. Tolerating oral intake, today's labs have been reviewed, white blood cell count is trending up, platelet count is up to 133, electrolytes are within normal limits. Liver enzymes are trending down, no complaint of abdominal pain, no nausea or vomiting. Stble to be discharged out of the ICU to regular medical surgical floor I performed a history & physical examination of the patient and discussed their management with my nurse practitioner, Ashli Parry. I reviewed the nurse practitioner's note and agree with the documented findings and plan of care. Lung sounds are positive for clear breath sounds. The findings and the impre ssion was discussed with the patient. I attest to the documentation by the nurse practitioner. Time with Patient: Less than 30
[2018-09-23] MEDS: traZODone HCL 50 MG TAB PO SCH (22:09)
[2018-09-24] MEDS: LORazepam 2 MG/ML INJ IV PRN (00:35)
[2018-09-24 07:44] VITALS: BP 147/106; PULSE 86; RESP 20; TEMP 98.1
[2018-09-24] MEDS: chlordiazePOXIDE 25 MG CAP PO SCH (08:42)
[2018-09-24] MEDS: THIAMINE 100 MG TAB PO SCH (08:42)
[2018-09-24] MEDS: FAMOTIDINE 20 MG TAB PO SCH (08:42)
[2018-09-24] MEDS: NICOTINE 21MG/24HR PATCH TRANSDERM SCH (08:43)
--- NOTE | 2018-09-24 12:17 | P.DS ---
Providers Date of admission: 09/20/18 02:05 Expected date of discharge: 09/24/18 Attending physician: Inge Herndon Consults: 09/20/18 02:03 Consult Physician Routine Consulting Provider: Jennie Bobo Consult Reason/Comments: Alcohol dependence Do you want consulting provider notified?: Yes 09/21/18 12:14 Consult Physician Urgent Consulting Provider: Bryan Ewing Reason/Comments: ETOH withdrawl Do you want consulting provider notified?: Already Contacted Primary care physician: Stated None Hospital Course: Discharge diagnosis - WITHDRAWAL - History of alcoholism - Transaminitis related to alcoholism - history of marijuana use - leukopenia - thrombocytopenia Hospital course 22 yoM presenting from [facility] with the c/c of vomiting and abdominal pain. Patient states he just arrived there today and they have no given him anything for ETOH withdrawal. He states he was last sober in December, which was the last time he was in rehab. He states he drank half a 5th this morning, which is less than he normally drinks. He then developed nausea and vomiting. While vomiting he had a bloody nose. He denies history of DTs. Denies history of pancreatitis. Patient was awake alert and stable upon arrival to ED becoming more tremulous while in the emergency department; patient was given Librium 50 mg which did improve him clinically; workup in ED was positive for elevated liver enzymes Patient is admitted to the hospital for further treatment and evaluation Patient was going high on Cipro protocol and he was started on Ativan as per Cipro protocol. He had to be transferred to ICU as the patient was really agitated. Along the course of the ICU the patient started to improve. He was transferred back to the regular floor. On 09/24/2018 Patient was sleeping but woke up to me calling his name. He was alert oriented 3. He was not having any issues. No chest pain racing heart no cough no shortness breath, no abdominal pain, nausea and vomiting, or diarrhea constipation, no tingling numbness of any 70s, and additional rest. Patient feels motivated to go to [place] to go to rehab On exam, alert and oriented x3. HEENT: Conjunctivae normal. eyes normal. NECK: No JVD. No thyroid enlargement. No LNs CARDIOVASCULAR: S1-S2 positive RESPIRATION: Breath sounds diminished in the bases. No rhonchi or crackles. No bronchial breathing. ABDOMEN: Soft, nontender . No guarding. no masses palpable. No ascites, No hepatosplenomegaly.Bowel sounds heard. LEGS: No edema. no swelling NERVOUS SYSTEM: Cranial N 2-12 grossly normal. Moves all 4 limbs. No focal deficits. No sensory deficit. No signs of cerebellar dysfucntion. Skin: no ulcer no rash Patient will be discharged when transport to [place] is been arranged. Patient was counseled to stop drinking. He will need to have his CMP checked in 1 week for liver functions and follow with his primary care doctor. Patient Condition at Discharge: Stable Plan - Discharge Summary New Discharge Prescriptions: Continue traZODone HCL 50 - 150 mg PO HS Ibuprofen [Motrin] 600 mg PO Q6HR PRN PRN Reason: Fever And/ Or Pain Chlorpheniramine Maleate [Chlor-Trimeton] 4 mg PO Q4H PRN PRN Reason: Allergy Symptoms Acetaminophen [Tylenol] 625 mg PO Q4H PRN PRN Reason: Fever And/ Or Pain Thiamine [Vitamin B-1] 100 mg PO DAILY Multivitamins, Thera [Multivitamin (formulary)] 1 tab PO DAILY Discharge Medication List Acetaminophen [Tylenol] 625 mg PO Q4H PRN 09/19/18 [History] Chlorpheniramine Maleate [Chlor-Trimeton] 4 mg PO Q4H PRN 09/19/18 [History] Ibuprofen [Motrin] 600 mg PO Q6HR PRN 09/19/18 [History] Multivitamins, Thera [Multivitamin (formulary)] 1 tab PO DAILY 09/19/18 [History] Thiamine [Vitamin B-1] 100 mg PO DAILY 09/19/18 [History] traZODone HCL 50 - 150 mg PO HS 09/19/18 [History] Follow up Appointment(s)/Referral(s): None,Stated [Primary Care Provider] - 1-2 days Discharge Disposition: OTHER INSTITUTION NOT DEFINED
--- NOTE | 2018-09-24 14:26 | P.PN ---
Subjective Progress Note Date: 09/24/18 Principal diagnosis: Acute alcohol withdrawal This is a 22-year-old white male patient with history of chronic alcoholism, heavy alcohol abuse, patient drinks a fifth of vodka on a daily basis since the age of 13, smoker, marijuana use, who presented to the hospital from [facility] where he was for detox. Patient came in with complaints of vomiting, abdominal pain, hence was transferred to the emergency department for evaluation. He checked into [facility] on September 19, and he stated he had not been given anything for EtOH withdrawal. Has prior history of acute alcohol withdrawal syndrome, with seizures, had prior rehab at [facility] back in December, however as soon as he left the rehab he was started drinking again. Patient was started on combination of Ativan and Librium. Admission lab work revealed elevated liver enzymes ultrasound of the abdomen was done showing fatty liver at 20-21 cm, no cholelithiasis. Admission lab work showed white blood cell count of 3.3, hemoglobin of 13.8, platelet count was 90, electrolytes were within normal limits on admission, BUN was 13 creatinine was 0.63. AST was 734, ALT was 258, amylase was 67, and lipase was 107, urinalysis showed 2+ protein, 1+ ketones, 1+ bilirubin, no evidence of infection, serum alcohol on admission was 93. Today we received a call from the attending physician with concerns about patient's tachycardia, hypertension, tremors, sweating, and patient will be transferred to the intensive care unit for monitoring for acute alcohol withdrawal. During our evaluation patient is sitting up in bed, he is dressed in his street clothes, he is pleasant, but he is visibly tremulous, and his palms are moist. His speech is fast, but appropriate, no signs of delirium at this time. His girlfriend and his father are at the bedside, patient was able to provide most of the history. He is pleasant and cooperative. Denies any abdominal pain, no nausea or vomiting. No seizure activity. Room air pulse ox is 100%, blood pressure is 148/105, temperature is 98.2, patient is tachycardic with a heart rate of 101 BPM. No complaints of chest pain or difficulty breathing. Today's evaluation this patient is is being seen in follow-up on 09/22/2018. The patient is a bit sleepy and still confused. No significant agitation. Based on my evaluation, the patient received a total of 26 mg of Ativan yesterday, 8 mg of Haldol and she was given another 4 mg of Ativan overnight. He is arousable. He is moving all 4 extremities without any limitation. He is not complaining of any headache. No cough. No sputum production. No chest pain. No palpitation pedal cardiac arrhythmias. The patient's white cell count is at 2.9. Platelet count is at 94,000. Rest of the blood work and electrodes are all within normal limits. On 09/23/2018 patient seen in follow-up in the intensive care unit, he is sitting up in the recliner, in no acute distress, no confusion, no signs of delirium, patient is responding appropriately, no tremors, no diaphoresis, room air pulse ox is 100%, no tachycardia, sinus rhythm on the monitor with a controlled rate, afebrile, hemodynamically stable. Respirations are even and nonlabored. No acute events overnight. Doing much better, tolerating a regular diet. Patient is stable to transfer out of the intensive care unit today. On 09/24/2018 patient seen in follow-up on medical surgical floor. Doing well, vital signs are stable, no active delirium. No acute events overnight. No tremors. No complaints of headaches, room air pulse ox 98%, patient is being discharged to [facility] rehab today Objective - Vital Signs Vital signs: Vital Signs Temp 98.1 F 09/24/18 07:00 Pulse 86 09/24/18 07:00 Resp 20 09/24/18 09:05 BP 147/106 09/24/18 07:00 Pulse Ox 98 09/24/18 07:00 Intake & Output 09/23/18 09/24/18 09/24/18 18:59 06:59 18:59 Intake Total 475 750 Balance 475 750 Intake: IV 75 Sodium Chloride 0.9% 1, 75 000 ml @ 75 mls/hr IV . [id number] JACQUE Rx#:[id number] Intake, IV Titration 750 Amount Sodium Chloride 0.9% 1, 750 000 ml @ 75 mls/hr IV . [id number] JACQUE Rx#:[id number] Oral 400 Other: Voiding Method Urinal Urinal # Voids 2 3 3 - Exam GENERAL EXAM: Alert, pleasant, 22-year-old white male, on room air, answering appropriately, comfortable in no apparent distress. HEAD: Normocephalic/atraumatic. EYES: Normal reaction of pupils, equal size. Conjunctiva pink, sclera white. NOSE: Clear with pink turbinates. THROAT: No erythema or exudates. NECK: No masses, no JVD, no thyroid enlargement, no adenopathy. CHEST: No chest wall deformity. Symmetrical expansion. LUNGS: Equal air entry with no crackles, wheeze, rhonchi or dullness. CVS: Regular rate and rhythm, normal S1 and S2, no gallops, no murmurs, no rubs ABDOMEN: Soft, nontender. No hepatosplenomegaly, normal bowel sounds, no guarding or rigidity. EXTREMITIES: No clubbing, no edema, no cyanosis, 2+ pulses and upper and lower extremities. MUSCULOSKELETAL: Muscle strength and tone normal. SPINE: No scoliosis or deformity SKIN: No rashes CENTRAL NERVOUS SYSTEM: Alert and oriented -3. No focal deficits, tone is normal in all 4 extremities. PSYCHIATRIC: Alert and oriented -3. Appropriate affect. Intact judgment and insight. - Labs CBC & Chem 7: 09/23/18 04:46 09/23/18 04:46 Assessment and Plan Plan: Assessment: #1. Acute alcohol withdrawal/delirium tremens in a patient was chronic history of alcoholism. The patient's condition is more stable and the patient was covered with a combination of Ativan and Haldol. Hemodynamically stable at this point in time. #2. Elevated liver enzymes related to chronic alcoholism, abdominal ultrasound revealed fatty liver #3. Chronic alcoholism, with previous history of rehab placement at [facility], patient immediately relapsed after discharge from rehab. Drinks a fifth of vodka a day, last drink was before entering [facility] on 09/19/2018 #4. Chronic smoker #5. Marijuana use #6. Leukopenia and thrombocytopenia related to chronic alcohol abuse, improving Plan: Patient is doing well, no active delirium, vital signs are stable, tolerating ambulation, no acute events overnight. Patient is being discharged back to [facility] today I performed a history & physical examination of the patient and discussed their management with my nurse practitioner, Ashli Parry. I reviewed the nurse practitioner's note and agree with the documented findings and plan of care. Lung sounds are positive for clear breath sounds. The findings and the impres min was discussed with the patient. I attest to the documentation by the nurse practitioner. Time with Patient: Less than 30
== END 2018-09-24 14:07 | disposition other institution (70) | DRG 897 ==
LOC: EC 21:16 → 4MS4W 09-20 02:05 → 2SICU 09-21 12:47 → 4SSUR 09-23 10:01
PROVIDERS: ADMIT Internal Medicine; ATTEND Internal Medicine
DX: F10.239 Alcohol dependence with withdrawal, unspecified (principal); R44.3 Hallucinations, unspecified; K76.0 Fatty (change of) liver, not elsewhere classified; F10.229 Alcohol dependence with intoxication, unspecified; Y90.4 Blood alcohol level of 80-99 mg/100 ml; D70.9 Neutropenia, unspecified; D69.59 Other secondary thrombocytopenia; G47.9 Sleep disorder, unspecified; F17.210 Nicotine dependence, cigarettes, uncomplicated
CPT/HCPCS: 36415; 76700; 80048; 80053; 80076; 80306; 80320; 81001; 82150; 82248; 83690; 83735; 85025; 96361; 96374; 96375; 96376; 99285

== ENCOUNTER 2018-12-07 21:51 | Observation (INO) | payer BC ==
[2018-12-07] MEDS ORDERED: PANTOPRAZOLE 40 MG/10 ML VIAL IVP STA (21:59)
[2018-12-07] MEDS ORDERED: ONDANSETRON 4 MG/2 ML VIAL IVP STA (21:59)
[2018-12-07] MEDS ORDERED: SODIUM CHLORIDE 0.9% 1,000 ML IV STA (21:59)
[2018-12-07 22:22] LABS: Appearance,Urine Clear (Clear); Bilirubin,Urine Negative (Negative); Blood,Urine Negative (Negative); Color,Urine Colorless; Glucose,Urine (UA) Negative (Negative); Ketones,Urine Negative (Negative); Leukocyte Esterase,Urine Negative (Negative); Nitrite,Urine Negative (Negative); PH, Urine 6.5 (5.0-8.0); Protein,Urine 1+ (Negative); Specific Gravity,Urine 1.002 (1.001-1.035); Urobilinogen,Urine <2.0 mg/dL (<2.0)
[2018-12-07 22:27] LABS: ALT 70 U/L (21-72); AST 156 U/L (17-59); African American GFR (CKD) >90 (>60 ml/min/1.73 sqM); Alkaline Phosphatase 86 U/L (38-126); Amylase 78 U/L (30-110); Anion Gap 19 mmol/L; Blood Urea Nitrogen 6 mg/dL (9-20); Calcium 9.7 mg/dL (8.4-10.2); Carbon Dioxide 25 mmol/L (22-30); Chloride 99 mmol/L (98-107); Glucose 175 mg/dL (74-99); Potassium 3.6 mmol/L (3.5-5.1); Sodium 143 mmol/L (137-145); Total Bilirubin 0.5 mg/dL (0.2-1.3); Total Protein 7.9 g/dL (6.3-8.2)
[2018-12-07 22:30] LABS: Basophils % (A) 1 %; Eosinophils # (A) 0.1 k/uL (0-0.7); Eosinophils % (A) 2 %; HCT 46.2 % (39.0-53.0); HGB 15.3 gm/dL (13.0-17.5); Lymphocytes # (A) 0.8 k/uL (1.0-4.8); Lymphocytes % (A) 27 %; MCH 31.6 pg (25.0-35.0); MCHC 33.2 g/dL (31.0-37.0); MCV 95.2 fL (80.0-100.0); Mean Platelet Volume 7.2; Monocytes # (A) 0.2 k/uL (0-1.0); Monocytes % (A) 5 %; Neutrophils # (A) 1.8 k/uL (1.3-7.7); Neutrophils % (A) 62 %; Platelet Count 128 k/uL (150-450); RBC 4.85 m/uL (4.30-5.90); RDW 13.9 % (11.5-15.5)
[2018-12-07 22:36] LABS: Alcohol 481 mg/dL
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
[2018-12-07] MEDS ORDERED: ONDANSETRON 4 MG/2 ML VIAL IVP PRN (23:13)
[2018-12-07] MEDS ORDERED: NALOXONE 0.4 MG/ML 1 ML VIAL IV PRN (23:13)
[2018-12-07] MEDS ORDERED: THIAMINE 100 MG/ML 2 ML VIAL IM STA (23:14)
[2018-12-07] MEDS ORDERED: LORazepam 2 MG/ML INJ IV PRN ×2 (23:14)
--- NOTE | 2018-12-07 23:18 | XR ---
EXAM: XR Abdomen, 1 View CLINICAL HISTORY: ITS.REASON XR Reason: abdominal pain TECHNIQUE: Frontal supine view of the abdomen/pelvis. COMPARISON: No relevant prior studies available. FINDINGS: Gastrointestinal tract: Unremarkable. No dilation. Bones/joints: No acute fracture. No dislocation. IMPRESSION: No acute findings.
[2018-12-07] MEDS: SODIUM CHLORIDE 0.9% 1,000 ML IV SCH (23:45)
[2018-12-08] MEDS: THIAMINE 100 MG TAB PO SCH ×3 (00:03→16:52)
--- NOTE | 2018-12-08 00:41 | P.HPIM ---
History of Present Illness H&P Date: 12/08/18 Patient is a 23-year-old male with a PMH of significant alcohol abuse (hx of DTs, intubation, ativan infusion, and MICU stay) and tobacco abuse (1 PPD) presented to the ED with acute alcohol intoxication. The patient notes that he has been drinking heavily since the age of [age] years old, and over the past few years, has increased his consumption to 2//5th of rum/vodka daily. At time of interview, he reported strong feelings of wanting to quit, but is afraid of detoxing at home due to his significant history of DTs. He however denied any active complaints including abdominal pain, nausea, vomiting, cough, fever, chills, chest pain, or shortness of breath. He also denied hematemesis, hematoch ezia, diarrhea, recent travel, or sick contacts. He underwent an extensive evaluation in the emergency room with an alcohol level of 41, WBC count of 3.0, hemoglobin of 15.3, platelets 128, BUN 6, creatinine 0.6, glucose 175, and AST 156, with ALT 70. Patient was subsequently admitted to the medicine service for acute alcohol intoxication and impending withdrawal. Review of Systems Pertinent positives and negatives as discussed in HPI, a complete review of systems was performed and all other systems are negative. Past Medical History Past Medical History: No Reported History Additional Past Medical History / Comment(s): EtOH abuse w/ hx of DTs History of Any Multi-Drug Resistant Organisms: None Reported Additional Past Surgical History / Comment(s): Right hand surg. LEFT ARM Past Anesthesia/Blood Transfusion Reactions: No Reported Reaction Past Psychological History: No Psychological Hx Reported Smoking Status: Current every day smoker Past Alcohol Use History: Heavy Additional Past Alcohol Use History / Comment(s): Patient states he drinks two fifths a day, rum Past Drug Use History: Marijuana - Past Family History Father Family Medical History: No Reported History Mother Family Medical History: No Reported History Medications and Allergies Home Medications Medication Instructions Recorded Confirmed Type No Known Home Medications 12/07/18 12/07/18 History Allergies Allergy/AdvReac Type Severity Reaction Status Date / Time No Known Allergies Allergy Verified 12/07/18 22:13 Physical Exam Vitals: Vital Signs Temp Pulse Resp BP Pulse Ox 12/07/18 23:29 100 18 130/86 92 L 12/07/18 21:56 98 F 106 H 18 139/88 92 L Intake and Output 12/07/18 12/07/18 12/08/18 14:59 22:59 06:59 Other: Weight 74.843 kg General: intoxicated male, tremulous, appears at stated age, normal weight Derm: no unusual rashes/lesions no unusual ecchymoses, warm, dry Head: atraumatic, normocephalic, symmetric Eyes: EOMI, no lid lag, anicteric sclera, pupils equal round reactive to light ENT: Nose and ears atraumatic, no thrush, no pharyngeal erythema Neck: No thyromegaly, no cervical lymphadenopathy, trachea midline, supple Mouth: no lip lesion, mucus membranes moist Cardiovascular: S1S2 reg, no murmur, positive posterior tibial pulse bilateral, no edema, capillary refill less than 2 seconds Lungs: CTA bilateral, no rhonchi, no rales , no accessory muscle use Abdominal: soft, nontender to palpation, no guarding, no appreciable organomegaly, normal bowel sounds Ext: no gross muscle atrophy, muscle strength 5 out of 5 in all 4 extremities grossly, no contractures, Neuro: CN II-XI grossly intact, light touch intact all 4 extremities, outstretched hand tremor, tongue fasciculations Psych: Alert, oriented, appropriate affect, intoxicated Results CBC & Chem 7: 12/07/18 22:05 12/07/18 22:05 Labs: Abnormal Lab Results - Last 24 Hours (Table) 12/07/18 12/07/18 12/07/18 Range/Units 22:05 22:05 22:05 WBC 3.0 L (3.8-10.6) k/uL Plt Count 128 L (150-450) k/uL Lymphocytes # 0.8 L (1.0-4.8) k/uL BUN 6 L (9-20) mg/dL Creatinine 0.60 L (0.66-1.25) mg/dL Glucose 175 H (74-99) mg/dL AST 156 H (17-59) U/L Urine Protein 1+ H (Negative) Serum Alcohol 481 H* mg/dL Thrombosis Risk Factor Assmnt - Choose All That Apply Any of the Below Risk Factors Present?: No Each Factor Represents 1 point: Abnormal pulmonary function (COPD) Other Risk Factors: No Other congenital or acquired thrombophilia - If yes, enter type in comment: No Thrombosis Risk Factor Assessment Total Risk Factor Score: 1 Thrombosis Risk Factor Assessment Level: Very Low Risk Assessment and Plan Plan: Alcohol intoxication, impending withdrawal -CIWA protocol -Thiamine, Folate, MV -Aspiration, seizure, fall precautions -Monitor electrolytes and replace accordingly -Start Librium Bicytopenia, secondary to alcohol abuse -Monitor for now Hyperglycemia -Likely due to liver dysfunction from EtOH abuse -Check A1C Transaminitis, secondary to EtOH abuse -Monitor for now DVT prophylaxis -IPCDs The patient is admitted with an anticipated less than 2 midnight stay for evaluation of acute alcohol intoxication CODE STATUS: Full Code Discussed with: Patient, Girlfriend Anticipated discharge date: 12/10/[address]: Home A total of 40 minutes was spent on the care of this complex patient more than 50% of the time was spent in counseling and care coordination.
[2018-12-08] MEDS: chlordiazePOXIDE 25 MG CAP PO SCH ×4 (01:00→21:00)
[2018-12-08 07:22] LABS: HCT 39.5 % (39.0-53.0); HGB 13.8 gm/dL (13.0-17.5); MCH 33.6 pg (25.0-35.0); MCV 95.9 fL (80.0-100.0); Mean Platelet Volume 7.1; Platelet Count 111 k/uL (150-450); RBC 4.12 m/uL (4.30-5.90); WBC 3.6 k/uL (3.8-10.6)
[2018-12-08 07:35] LABS: ALT 64 U/L (21-72); AST 140 U/L (17-59); African American GFR (CKD) >90 (>60 ml/min/1.73 sqM); Albumin 4.2 g/dL (3.5-5.0); Alkaline Phosphatase 65 U/L (38-126); Anion Gap 14 mmol/L; Blood Urea Nitrogen 7 mg/dL (9-20); Calcium 8.5 mg/dL (8.4-10.2); Carbon Dioxide 26 mmol/L (22-30); Chloride 101 mmol/L (98-107); Glucose 80 mg/dL (74-99); Magnesium 1.6 mg/dL (1.6-2.3); Potassium 3.7 mmol/L (3.5-5.1); Sodium 141 mmol/L (137-145); Total Bilirubin 0.9 mg/dL (0.2-1.3); Total Protein 6.8 g/dL (6.3-8.2)
[2018-12-08] MEDS: FOLIC ACID 1 MG TAB PO SCH (08:09)
[2018-12-08] MEDS ORDERED: LORazepam 2 MG/ML INJ IV STA (10:58)
--- NOTE | 2018-12-08 11:06 | P.PN ---
Progress Note - Text Progress Note Date: 12/08/18 Patient was seen. Patient reports auditory hallucinations that is not normal for him. Voices are nonspecific, not telling him to do anything specific. He denies any visual hallucinations or suicidal ideations. Abdominal pain has improved since admission. Patient states that he is motivated to quit drinking. Has been to [facility] in the past but relapsed. Has been drinking since 11 years of age. We'll continue current treatment. Patient is on CIWA protocol and given Ativan as needed along with Librium scheduled. I will give him 2 mg of Ativan IV stat. He is high risk for withdrawal and DTs. Will consult psychiatry for auditory hallucinations. Zofran and Protonix for possible gastritis. Patient is leukopenic and thrombocytopenic along with elevated AST but this is thought to be secondary to chronic alcohol abuse. He is pending clinical improvement.
[2018-12-08 11:56] LABS: Hemoglobin A1C 5.6 % (4.0-6.0)
[2018-12-08] MEDS: SODIUM CHLORIDE 0.9% 1,000 ML IV SCH ×2 (14:22→23:06)
[2018-12-08] MEDS: LORazepam 2 MG/ML INJ IV PRN ×2 (19:37→21:46)
[2018-12-09 02:18] VITALS: TEMP 97.5
[2018-12-09] MEDS: FOLIC ACID 1 MG TAB PO SCH (07:43)
[2018-12-09] MEDS: THIAMINE 100 MG TAB PO SCH (07:43)
[2018-12-09] MEDS: chlordiazePOXIDE 25 MG CAP PO SCH (07:43)
[2018-12-09 09:13] VITALS: PULSE 60; RESP 16
[2018-12-09 09:49] VITALS: BP 144/89
--- NOTE | 2018-12-09 09:55 | P.DS ---
Providers Date of admission: 12/07/18 23:13 Expected date of discharge: 12/09/18 Attending physician: Prem Cavanaugh MD Consults: 12/08/18 10:57 Consult Physician Routine Consulting Provider: Arash Terry Consult Reason/Comments: Auditory hallucination Do you want consulting provider notified?: Yes Primary care physician: Stated None Hospital Course: Patient is a 23-year-old male with a PMH of significant alcohol abuse (hx of DTs, intubation, ativan infusion, and MICU stay) and tobacco abuse (1 PPD) presented to the ED with acute alcohol intoxication. He underwent an extensive evaluation in the emergency room with an alcohol level of 41, WBC count of 3.0, hemoglobin of 15.3, platelets 128, BUN 6, creatinine 0.6, glucose 175, and AST 156, with ALT 70. Patient was subsequently admitted to the medicine service for acute alcohol intoxication and impending withdrawal. Patient was placed on CIWA protocol and given Ativan as needed for withdrawal. He was placed on aspiration, seizure and fall precautions. Is also started on Librium 25 mg 3 times a day. Patient was noted to be leukopenic with a WBC count of 3.6 and thrombocytopenic with a platelet count of 111 on discharge thought to be secondary to alcohol abuse. He had an elevated AST of 156 on admission which trended down to 140 on discharge. On day 1, patient reported auditory hallucination which was nonspecific, denied visual hallucinations along with suicidal and homicidal ideations. Psychiatry was consulted. Patient was seen and examined. No acute events overnight. Patient reports complete resolution of his auditory hallucinations. He denies any chest pain, shortness breath or palpitations. No visual hallucinations. He denies any suicidal or homicidal ideations. Patient states that she is interested in going to [facility] for alcohol rehab, 50% chance. No nausea or vomiting. No fever or chills. Wants to go home today. General: [non toxic], [no distress], [appears at stated age] Derm: [warm], [dry] Head: [atraumatic], [normocephalic], [symmetric] Eyes: [EOMI], [no lid lag], [anicteric sclera] Mouth: [no lip lesion], [mucus membranes moist] Cardiovascular: [S1S2 reg], [no murmur], [positive DP pulse bilateral], Lungs: [CTA bilateral], [no rhonchi, no rales] , [no accessory muscle use] Abdominal: [soft], [ nontender to palpation], [no guarding], [no appreciable organomegaly] Ext: [no gross muscle atrophy], [no edema], [no contractures] Neuro: [no focal neuro deficits] Psych: [Alert], [oriented], [appropriate affect] Assessment and Plan Alcohol intoxication with impending withdrawals Bicytopenia secondary to alcohol abuse Transaminitis secondary to alcohol abuse Auditory hallucinations, now resolved Patient is alert and oriented 3. Last Ativan dose was 9 PM last night. Plans: Patient states that there is a 50% chance that he will go to [facility] inpatient alcohol rehab. Will discharge patient home with Ativan, 9 tablets 1 mg as needed for withdrawal symptoms. Patient and his girlfriend has been advised to go straight to [facility] today and check himself into rehab. He has been advised that if he continues to drink that he should not be taking alcohol as they're both respiratory depressants and can lead to . Patient and girlfriend verbalized understanding of the plan. Patient continues to be leukopenic and thrombocytopenic but that is likely directly related to alcohol abuse. His transaminitis is improved from admission. His auditory hallucinations has resolved, likely related to alcohol withdrawal, no suicidal or homicidal ideations or visual hallucinations. We will cancel psychiatry consult as patient is not in risk for self-harm. Pertinent Studies: Abdominal x-ray Patient Condition at Discharge: Stable Plan - Discharge Summary Discharge Rx Participant: Yes New Discharge Prescriptions: New LORazepam [Ativan] 1 mg PO TID PRN 3 Days #9 tab PRN Reason: Alcohol Withdrawal Thiamine [Vitamin B-1] 100 mg PO BID-W/MEALS #60 tab Discharge Medication List LORazepam [Ativan] 1 mg PO TID PRN 3 Days #9 tab 12/09/18 [Rx] Thiamine [Vitamin B-1] 100 mg PO BID-W/MEALS #60 tab 12/09/18 [Rx] Follow up Appointment(s)/Referral(s): None,Stated [Primary Care Provider] - 1-2 days Activity/Diet/Wound Care/Special Instructions: Diet: Regular Follow-up with PCP within 1-2 days discharge. Follow-up at [facility] alcohol rehab today. Take all medications as advised. If you continue to drink, please do not take the Ativan as a combination of both can lead to respiratory depression and . Discharge Disposition: HOME SELF-CARE
== END 2018-12-09 10:27 | disposition home or self-care (01) ==
LOC: EC 21:51 → 4SSUR 23:13
PROVIDERS: ADMIT Internal Medicine; ATTEND Internal Medicine
DX: F10.229 Alcohol dependence with intoxication, unspecified (principal); K70.10 Alcoholic hepatitis without ascites; R10.9 Unspecified abdominal pain; Y90.8 Blood alcohol level of 240 mg/100 ml or more; R94.5 Abnormal results of liver function studies; F17.210 Nicotine dependence, cigarettes, uncomplicated; J44.9 Chronic obstructive pulmonary disease, unspecified; R73.9 Hyperglycemia, unspecified; R74.0 Nonspecific elevation of levels of transaminase and lactic acid dehydrogenase [LDH]; R44.0 Auditory hallucinations; D61.818 Other pancytopenia
CPT/HCPCS: 96376; 96361 ×2; 96375 ×2; 96372; 96374; 99285; 36415; 80053 ×2; 82150; 83690; 83735; 85025; 85027; 81001; 80320; 83036; 74018; G0378 ×3; J2060; J3411; J2405; C9113

== ENCOUNTER 2018-12-18 00:39 | Observation (INO) | payer BC ==
[2018-12-18] MEDS ORDERED: SODIUM CHLORIDE 0.9% 1,000 ML IV STA (01:01)
[2018-12-18 01:23] LABS: Basophils # (A) 0.1 k/uL (0-0.2); Basophils % (A) 2 %; Eosinophils % (A) 1 %; HCT 42.9 % (39.0-53.0); HGB 14.8 gm/dL (13.0-17.5); Lymphocytes # (A) 1.3 k/uL (1.0-4.8); Lymphocytes % (A) 33 %; MCHC 34.6 g/dL (31.0-37.0); MCV 95.4 fL (80.0-100.0); Monocytes # (A) 0.2 k/uL (0-1.0); Monocytes % (A) 6 %; Neutrophils # (A) 2.2 k/uL (1.3-7.7); Neutrophils % (A) 56 %; RBC 4.49 m/uL (4.30-5.90); RDW 15.6 % (11.5-15.5); WBC 3.9 k/uL (3.8-10.6)
[2018-12-18 01:25] LABS: Platelet Count 301 k/uL (150-450)
[2018-12-18 01:35] LABS: ALT 140 U/L (21-72); AST 250 U/L (17-59); African American GFR (CKD) >90 (>60 ml/min/1.73 sqM); Albumin 4.5 g/dL (3.5-5.0); Alkaline Phosphatase 92 U/L (38-126); Anion Gap 13 mmol/L; Blood Urea Nitrogen 12 mg/dL (9-20); Calcium 8.8 mg/dL (8.4-10.2); Carbon Dioxide 27 mmol/L (22-30); Chloride 106 mmol/L (98-107); Glucose 101 mg/dL (74-99); Potassium 4.1 mmol/L (3.5-5.1); Sodium 146 mmol/L (137-145); Total Bilirubin 0.3 mg/dL (0.2-1.3); Total Protein 7.3 g/dL (6.3-8.2)
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
[2018-12-18 01:47] LABS: Alcohol 409 mg/dL
[2018-12-18] MEDS ORDERED: NALOXONE 0.4 MG/ML 1 ML VIAL IV PRN (02:02)
[2018-12-18] MEDS ORDERED: LORazepam 2 MG/ML INJ IV PRN ×2 (02:03)
[2018-12-18] MEDS ORDERED: THIAMINE 100 MG/ML 2 ML VIAL IM STA (02:03)
[2018-12-18] MEDS: NICOTINE 14MG/24HR PATCH TRANSDERM SCH ×2 (03:57→07:59)
[2018-12-18] MEDS: LORazepam 2 MG/ML INJ IV PRN ×5 (03:57→15:37)
[2018-12-18 11:36] VITALS: BP 124/61; PULSE 94; RESP 18; TEMP 98.3
[2018-12-18] MEDS ORDERED: chlordiazePOXIDE 25 MG CAP PO SCH (13:15)
--- NOTE | 2018-12-18 13:36 | P.CN ---
Psychiatric Consult - . Consult date: 12/18/18 Consult:: 12/18/18 13:23 IDENTIFYING DATA: This patient is a 23-year-old male who is currently unemployed and lives with his friend in apartment has no kids and is unmarried. HISTORY OF PRESENT ILLNESS: The patient has a chronic history of alcohol intoxication and multiple related admissions for alcohol abuse. Patient was admitted to the medical floors for alcohol detox as patient's blood alcohol level was 409 on admission had elevated liver function tests and has a history of severe withdrawal. Patient was seen by psychiatry today for depression along with alcohol abuse. Patient was agreeable to speak to bond writer however had a soft tone to his voice yet was cooperative and directable during the interview. He states that he has been struggling with alcohol problems since he started drinking at the age of 13. He states that he feels depressed when he drinks alcohol and somewhat anxious as well when he is not drinking. He states that he does have cravings for alcohol and drinks approximately 2 fifths of rum daily. He states that yesterday he was drinking with a friend prior to coming into the hospital for detox. He claims that he is been having multiple health problems related to his drinking including pain in his liver and elevated LFTs. He mentions having a DUI in December of last year. He also explains that he has been to [facility] twice due to alcohol related problems. He states that alcohol is also causing family issues for him. Patient admitted to having previous withdrawal seizures in the past and usually feels cold sweats, hot flashes, shakes and also nausea and vomiting. He states that approximately 6 months ago he was admitted to the ICU for 5 days due to alcohol withdrawal and having visual hallucinations. At this time he denies any depressive symptoms and states that he does want to stop drinking alcohol. Patient is future oriented at this time. He states that he has poor sleep when he is drinking alcohol and has poor support at home as one of his friends drinks just as much as he does. At this time patient denies any suicidal or homical ideations, intent or plan. Patient denies any auditory, visual hallucinations and denies any paranoia or delusions. Patient also admits to smoking cigarettes approximately one pack per day and smoking cannabis approximately 2 times a week. He states that his alcohol use began at the age of 13 and states that he's only been 1 day sober after coming at a rehab which she has gone to twice in the past and relapsed both times. Patient denies any other recreational drug use. PAST PSYCHIATRIC HISTORY: Patient denies any formal psychiatric outpatient follow-up denies being on any psychotropic medications. He denies being admitted to a psych hospital. He denies any previous suicide attempts. PAST MEDICAL HISTORY: Alcoholic liver disease. ALLERGIES: NO KNOWN DRUG ALLERGIES. CHEMICAL DEPENDENCY HISTORY: as per HPI. FAMILY PSYCHIATRIC/SUBSTANCE USE HISTORY: He states that his father abused alcohol SOCIAL HISTORY: Patient states that he was born and raised in [place]. 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 He currently lives with his friend in apartment has no kids and is unmarried. MENTAL STATUS EXAM: General Appearance: Patient appears to be stated age is alert, directable and cooperative. Patient has poor hygiene and poor grooming. Patient is in no acute distress. Behavior: Patient is calmly lying in bed without any agitated behavior. Speech: Patient's speech is fluent and nonpressured. Soft tone Mood/Affect: Patient reports their mood is "alright", affect is congruent and constricted. Suicidality/Homicidality: Patient denies having any suicidal or homicidal ideation intent or plan. Perceptions: Patient denies any auditory or visual hallucinations. Though content/process: There is no evidence of any delusional thought content and thought process is linear and goal-directed. Guarded. Memory and concentration: AOX3, grossly intact for the purposes of this session. Can spell "WORLD" backwards Judgment and insight: Superficial insight and judgment. IMPRESSIONS: Depressive disorder unspecified rule out substance-induced depressive disorder Alcohol use disorder, moderate-severe, currently in withdrawal PLAN: -At this time patient does NOT meet criteria for inpatient psychiatric admission. -I spoke with patient about several options regarding treatment and patient was fairly superficial however did claim that he wanted to go to rehab and felt that it was his only chance to get sober. Patient was also agreeable to medication treatment for alcohol use. Patient was encouraged also to attend AA meetings in the community to help in his sobriety. -Would recommend the following medication changes/additions: Patient agreed to starting acamprosate 333 mg 3 times a day for one day then titrated up to 666 mg 3 times a day maintenance dose for alcohol cravings/use disorder. -Patient at this time is at high risk for DTs due to his previous history and his elevated blood alcohol level on admission. At this time will start Librium 25 mg 4 times a day for alcohol withdrawal. -Continue with CIWA per protocol with Ativan. At this time patient's vital signs appear stable. Continue to monitor. -Multivitamin, thiamine and folic acid for chronic alcohol use. -Will continue to follow along -die out worker to assist patient with substance use rehab inpatient referral and also resources for AA meetings in the community.
[2018-12-18] MEDS ORDERED: MULTIVITAMINS, THERA 1 EACH TAB PO SCH (13:45)
[2018-12-18] MEDS ORDERED: FOLIC ACID 1 MG TAB PO SCH (13:45)
[2018-12-18] MEDS ORDERED: ACAMPROSATE CALCIUM 333 MG TABLET.DR PO SCH (16:00)
[2018-12-18] MEDS ORDERED: THIAMINE 100 MG TAB PO SCH (17:30)
[2018-12-19] MEDS ORDERED: ACAMPROSATE CALCIUM 333 MG TABLET.DR PO SCH (16:00)
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
--- NOTE | 2019-01-11 23:27 | DS ---
DISCHARGE SUMMARY ADMITTED: 12/18/2018. DISCHARGE: 12/18/2018. DISCHARGE MEDICATIONS: 1. Ativan 1 mg t.i.d. for 3 days. 2. Thiamin 100 mg b.i.d. CONDITION: Stable. PROGNOSIS: Extremely guarded. Follow up with psychiatrist in the rehab center for outpatient counseling and rehab placement for alcohol intoxication and severe depression. Cleared by [facility] protocol while admitted with alcohol intoxication, withdrawal. Seen by psychiatrist who cleared him for discharge. He was given 3 days Ativan for withdrawal. Discharged home after he was stabilized from electrolyte standpoint and cleared by Psychiatry. MMODL / IJN: [id number] /
== END 2018-12-18 17:05 | disposition left against medical advice (07) ==
LOC: EC 00:39 → 3NMEDONC 02:03
PROVIDERS: ADMIT Family Medicine; ATTEND Family Medicine
DX: F10.229 Alcohol dependence with intoxication, unspecified (principal); F10.239 Alcohol dependence with withdrawal, unspecified; K70.10 Alcoholic hepatitis without ascites; Y90.8 Blood alcohol level of 240 mg/100 ml or more; F32.9 Major depressive disorder, single episode, unspecified; K76.0 Fatty (change of) liver, not elsewhere classified; F17.200 Nicotine dependence, unspecified, uncomplicated; Z79.899 Other long term (current) drug therapy
CPT/HCPCS: 96376; 96374; 96361; 96372; 99285; 36415; 82075; 80053; 83690; 85025; 80320; G0378; S4990; J2060; J3411

== ENCOUNTER 2020-09-30 11:08 | Emergency (ER) | payer BC ==
[2020-09-30 11:20] VITALS: RESP 18
[2020-09-30] MEDS ORDERED: ONDANSETRON 4 MG/2 ML VIAL IVP STA (11:29)
[2020-09-30] MEDS ORDERED: LORazepam 2 MG/ML INJ IV STA (11:29)
[2020-09-30] MEDS ORDERED: SODIUM CHLORIDE 0.9% 1,000 ML IV STA (11:29)
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
[2020-09-30 12:17] LABS: Basophils % (A) 1 %; Eosinophils # (A) 0.1 k/uL (0-0.7); Eosinophils % (A) 2 %; HCT 43.3 % (39.0-53.0); HGB 15.1 gm/dL (13.0-17.5); Lymphocytes # (A) 0.9 k/uL (1.0-4.8); Lymphocytes % (A) 16 %; MCH 32.7 pg (25.0-35.0); MCHC 34.8 g/dL (31.0-37.0); MCV 94.1 fL (80.0-100.0); Mean Platelet Volume 7.8; Monocytes # (A) 0.4 k/uL (0-1.0); Monocytes % (A) 7 %; Neutrophils # (A) 4.1 k/uL (1.3-7.7); Neutrophils % (A) 73 %; Platelet Count 166 k/uL (150-450); RDW 12.4 % (11.5-15.5); WBC 5.7 k/uL (3.8-10.6)
[2020-09-30 12:21] LABS: Appearance,Urine Clear (Clear); Bilirubin,Urine Negative (Negative); Blood,Urine Negative (Negative); Color,Urine Yellow; Glucose,Urine (UA) Negative (Negative); Ketones,Urine Trace (Negative); Leukocyte Esterase,Urine Negative (Negative); Nitrite,Urine Negative (Negative); PH, Urine 6.5 (5.0-8.0); Protein,Urine Negative (Negative); Specific Gravity,Urine 1.006 (1.001-1.035); Urobilinogen,Urine <2.0 mg/dL (<2.0)
[2020-09-30 12:31] LABS: Amphetamine Screen,Urine Not Detected (NotDetected); Barbiturate Screen,Urine Not Detected (NotDetected); Benzodiazepines Screen,Urine Not Detected (NotDetected); Cocaine Screen,Urine Not Detected (NotDetected); Methadone Screen, Urine Not Detected (NotDetected); Opiate Screen,Urine Not Detected (NotDetected); Oxycodone Screen, Urine Not Detected (NotDetected); Phencyclidine Screen,Urine Not Detected (NotDetected); Tricyclic Antidepressant,Urine Not Detected (NotDetected); Urn Cannabinoid Scrn Detected (NotDetected)
[2020-09-30 13:02] LABS: ALT 73 U/L (4-49); AST 127 U/L (17-59); African American GFR (CKD) >90 (>60 ml/min/1.73 sqM); Albumin 4.4 g/dL (3.5-5.0); Alkaline Phosphatase 61 U/L (38-126); Anion Gap 10 mmol/L; Blood Urea Nitrogen 9 mg/dL (9-20); Calcium 9.1 mg/dL (8.4-10.2); Carbon Dioxide 34 mmol/L (22-30); Chloride 92 mmol/L (98-107); Glucose 101 mg/dL (74-99); Lipase 191 U/L (23-300); Non-African American GFR(CKD) >90 (>60 ml/min/1.73 sqM); Potassium 3.5 mmol/L (3.5-5.1); Sodium 136 mmol/L (137-145); Total Bilirubin 0.6 mg/dL (0.2-1.3); Total Protein 6.7 g/dL (6.3-8.2)
[2020-09-30 13:06] LABS: Alcohol 177 mg/dL
[2020-09-30] MEDS ORDERED: ONDANSETRON 4 MG ODT STARTER PACK 2 TAB BTL PO STA (14:22)
[2020-09-30 15:09] VITALS: BP 134/86; PULSE 100; TEMP 98.7
== END 2020-09-30 14:41 | disposition home or self-care (01) ==
LOC: EC 11:08
DX: F10.229 Alcohol dependence with intoxication, unspecified (principal); R10.84 Generalized abdominal pain; F17.200 Nicotine dependence, unspecified, uncomplicated; R74.8 Abnormal levels of other serum enzymes; Y90.6 Blood alcohol level of 120-199 mg/100 ml
CPT/HCPCS: 36415; 80053; 83690; 85025; 81003; 80306; 80320; 99284; 96374; 96375; 96361; J2060; J2405; S0119

== ENCOUNTER 2020-10-09 17:09 | Emergency (ER) | payer BC ==
[2020-10-09] MEDS ORDERED: HYDROmorphone 0.5 MG/0.5 ML SYRINGE IVP STA (17:38)
[2020-10-09] MEDS ORDERED: ONDANSETRON 4 MG/2 ML VIAL IVP STA (17:38)
[2020-10-09] MEDS ORDERED: SODIUM CHLORIDE 0.9% 1,000 ML IV STA (17:38)
[2020-10-09] MEDS ORDERED: FAMOTIDINE 20 MG/2 ML VIAL IV STA (17:39)
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
[2020-10-09 18:08] LABS: Basophils # (A) 0.1 k/uL (0-0.2); Basophils % (A) 1 %; Eosinophils % (A) 1 %; HCT 49.5 % (39.0-53.0); HGB 15.9 gm/dL (13.0-17.5); Lymphocytes # (A) 0.9 k/uL (1.0-4.8); Lymphocytes % (A) 20 %; MCH 31.4 pg (25.0-35.0); MCHC 32.1 g/dL (31.0-37.0); MCV 97.9 fL (80.0-100.0); Mean Platelet Volume 7.1; Monocytes # (A) 0.2 k/uL (0-1.0); Monocytes % (A) 4 %; Neutrophils # (A) 3.1 k/uL (1.3-7.7); Neutrophils % (A) 72 %; Platelet Count 246 k/uL (150-450); RBC 5.06 m/uL (4.30-5.90); WBC 4.3 k/uL (3.8-10.6)
[2020-10-09 18:16] LABS: Appearance,Urine Clear (Clear); Bilirubin,Urine Negative (Negative); Blood,Urine Trace (Negative); Color,Urine Yellow; Glucose,Urine (UA) Negative (Negative); Hyaline Casts,Urine 2 /lpf (0-2); Ketones,Urine 3+ (Negative); Leukocyte Esterase,Urine Negative (Negative); Mucus,Urine Many /hpf; Nitrite,Urine Negative (Negative); Protein,Urine 1+ (Negative); RBC,Urine 6 /hpf (0-5); Specific Gravity,Urine 1.029 (1.001-1.035); Squamous Epithelial Cell,Urine <1 /hpf (0-4); WBC,Urine 1 /hpf (0-5)
[2020-10-09 18:20] LABS: ALT 111 U/L (4-49); AST 155 U/L (17-59); African American GFR (CKD) >90 (>60 ml/min/1.73 sqM); Albumin 4.9 g/dL (3.5-5.0); Alkaline Phosphatase 78 U/L (38-126); Amylase 74 U/L (30-110); Anion Gap 13 mmol/L; Blood Urea Nitrogen 11 mg/dL (9-20); Carbon Dioxide 28 mmol/L (22-30); Chloride 104 mmol/L (98-107); Glucose 98 mg/dL (74-99); Lipase 63 U/L (23-300); Non-African American GFR(CKD) >90 (>60 ml/min/1.73 sqM); Potassium 4.5 mmol/L (3.5-5.1); Sodium 145 mmol/L (137-145); Total Bilirubin 0.3 mg/dL (0.2-1.3); Total Protein 7.4 g/dL (6.3-8.2)
[2020-10-09 18:23] LABS: INR 0.9 (<1.2); Prothrombin Time 9.7 sec (9.0-12.0)
[2020-10-09 18:45] LABS: Partial Thromboplastin Time 21.3 sec (22.0-30.0)
[2020-10-09 20:35] VITALS: BP 143/92; PULSE 74; RESP 18; TEMP 97.6
== END 2020-10-09 20:33 | disposition home or self-care (01) ==
LOC: EC 17:09
DX: E86.0 Dehydration (principal); R11.2 Nausea with vomiting, unspecified; F10.10 Alcohol abuse, uncomplicated; F17.200 Nicotine dependence, unspecified, uncomplicated
CPT/HCPCS: 96374; 96375; 96361; 99284; 36415; 80053; 82150; 83690; 83735; 85025; 85610; 85730; 81001; J2405; J1170